=== PATIENT | male | born 1950 | race Caucasian/White ===

== ENCOUNTER 2020-01-06 09:15 | Day surgery (SDC) | payer OTHER ==
[2020-01-05 12:22] VITALS: BMI 25.0
--- NOTE | 2020-01-06 08:20 | HP ---
[facility]ellite [facility] - Chief Complaint Chief Complaint: right hand pain - Past Medical History Allergies/Adverse Reactions: Allergies Allergy/AdvReac Type Severity Reaction Status Date / Time No Known Drug Allergies Allergy Verified 01/05/20 12:14 - Current Medications Current Medications: Home Medications Medication Instructions Recorded Atorvastatin Ca [Lipitor] 10 mg PO HS 08/07/13 Budesonide/Formeterol Fumarate 1 inh PO DAILY 06/13/15 [SYMBICORT 80/4.5mcg -] Fexofenadine HCl [Farheen] 30 mg PO DAILY 06/13/15 Hydrocodone/Acetaminophen 1 each PO Q6H #15 tablet MDD 4 01/06/20 [Hydrocodone-Acetamin 5-325 mg] Satellite Physical Exam - Physical Examination General Appearance: Well Nourished, Well Developed, Alert & Oriented x3 ENT: Clear Lung: Normal air movement Extremities: Other (right hand- + tinels, + phalens, EMG + cts) Neurological: Intact, Alert, Oriented Satellite Impression/Plan - Impression/Plan Impression: right cts Operative Procedure: right ctr Date to be Performed: 01/06/20
[2020-01-06] MEDS ORDERED: MIDAZOLAM HCL 2 MG/2 ML SINGLE DOSE VIAL ONE (12:47)
[2020-01-06] MEDS ORDERED: PROPOFOL 20 ML ONE (12:47)
[2020-01-06] MEDS ORDERED: ceFAZolin SODIUM 1 GM VIAL IVPB ONE (13:01)
[2020-01-06] MEDS ORDERED: LIDOCAINE HCL 1%, 10 MG/ML (20ML VIAL) PNB ONE (13:15)
[2020-01-06] MEDS ORDERED: BUPIVACAINE HCL/PF 0.5% (5 MG/ML) 30 ML VIAL IJ ONE (13:15)
--- NOTE | 2020-01-06 13:51 | OP ---
Operative Note - Note: Operative Date: 01/06/20 Pre-Operative Diagnosis: right CTS, tenosynovitis Operation: right CTR, tenosynovectomy Post-Operative Diagnosis: Same as Pre-op Surgeon: Naeem Richardson Anesthesiologist/SPOUTING INSTALLER: Anatoly Wesley Anesthesia: Local, MAC Specimens Removed: tenosynovium Estimated Blood Loss (mls): 0 Drains, Volume Out (mls): 0 Blood Volume Replaced (mls): 0 Fluid Volume Replaced (mls): 500 Operative Report Dictated: Yes
[2020-01-06 15:36] VITALS: BP 119/72; PULSE 62; TEMP 97.2
--- NOTE | 2020-01-07 08:15 | SPEC ---
DATE OF OPERATION: 01/06/2020 PREOPERATIVE DIAGNOSES: Right carpal tunnel syndrome and tenosynovitis. POSTOPERATIVE DIAGNOSES: Right carpal tunnel syndrome and tenosynovitis. PROCEDURE: Right carpal tunnel release and tenosynovectomy. SURGEON: Naeem Richardson MD CALIBRATOR BAROMETERS: None. TIN STACKER: SHARMAINE Cardenas-LOADING MACHINE ADJUSTER ANESTHESIA: MAC anesthesia with local injection of 12 mL of a 0.5% Marcaine and 1% lidocaine mix. DRAINS: None. COMPLICATIONS: None. SPECIMEN: Tenosynovium, right wrist. BLOOD LOSS: None. BLOOD GIVEN: None. FLUID REPLACEMENT: Plasma-Lyte 500 mL. INDICATION FOR PROCEDURE: This patient is a 69-year-old male with a preoperative diagnosis of severe right carpal tunnel syndrome with tenosynovitis. After understanding the potential risks, complications, alternatives and benefits of surgery versus nonsurgical treatment the patient elected to undergo this procedure. DESCRIPTION OF PROCEDURE: The patient was brought to the operating room, peripheral IV placed and intravenous sedation was given. Two grams of intravenous Ancef was given. MAC anesthesia was induced. A tourniquet was applied to the right upper arm and the right upper extremity was prepped and draped in sterile fashion. The entire case was done under 3.8 loupe magnification. A marking pen was utilized to dixie out a longitudinal incision in an already existing skin crease. Twelve mL of 0.5% Marcaine mixed with 1% lidocaine was injected in and around the surgical incision. The right upper extremity was elevated, exsanguinated with an Esmarch bandage and the tourniquet inflated to 250 mmHg. A No. 15 scalpel blade was utilized to cut down through the skin. Subcutaneous hemostasis was achieved with the bipolar cautery. Dissection was done through the superficial palmar fascia. Self-retaining retractors were placed into the wound. Under direct visualization, the transverse carpal ligament was transected with a No. 15 scalpel blade, exposing the median nerve and the contents of the carpal tunnel. The distal and proximal extents of the release were completed with a Littler scissor and checked with irrigation and my small finger. They were seen to be complete. Limited dissection was done on the radial side of the median nerve and more extensive dissection was done on the ulnar side of the median nerve. The patients nerve was seen to be quite compressed by epineurium and therefore a limited epineurotomy was performed. A Ragnell retractor was used to gently retract the median nerve in a radial direction. The patient had a lot of tenosynovitis and therefore a tenosynovectomy was performed off all 9 flexor tendons. This was passed off the field as tenosynovium, right wrist. The floor of the carpal tunnel was checked. There were no abnormal masses or ganglion cysts. The area was copiously irrigated and washed out and closure begun. Undyed 4-0 Vicryl was used to close the deep dermal layer. Final skin reapproximation was done with horizontal mattress 4-0 nylon sutures. The area was then washed and dried, covered with Xeroform, 4 x 4's, fluffs between the fingers, Webril and a 4-inch plaster roll was utilized to make a volar splint, which was then wrapped with Mauro and Coban. The tourniquet was taken down after a total tourniquet time of 20 minutes. There were no complications during the case. The patient tolerated the procedure well and was brought to the ambulatory recovery room in stable condition. Codi [id number]
--- NOTE | 2020-01-08 17:47 | PATH ---
Surgical Pathology Report Patient Name: SUNITHA ROSALES [facility]. Rec. #: [id number] /Age/Gender: 1950 (Age: 69) / M Account: [id number] Location: [facility] Taken: 01/06/2020 Received: 01/07/2020 Reported: 01/08/2020 Physicians: Naeem Richardson M.D. Specimen(s) Received RIGHT TENOSYNOVIUM Clinical History Right carpal tunnel Final Diagnosis RIGHT TENOSYNOVIUM, EXCISION: TENOSYNOVIAL TISSUE WITH FOCAL FIBROSIS. Electronically Signed Juan C Alegria M.D. Gross Description Received in formalin labeled "right tenosynovium," is a 2.0 x 1.8 x 0.3 cm aggregate of turner-yellow portions of soft tissue, consistent with tenosynovium. The specimen is submitted in toto in one cassette. /01/07/2020 saudi/01/07/2020
== END 2020-01-06 15:25 | disposition home or self-care (01) ==
LOC: JASU-SURG 09:15
PROVIDERS: ATTEND Orthopaedic Surgery
PROC: 01N50ZZ Release Median Nerve, Open Approach (ICD-10-PCS; principal; 2020-01-06 11:30)
DX: G56.01 Carpal tunnel syndrome, right upper limb (principal)